=== PATIENT | female | born 2000 | race American Indian/Alaskan Native ===

== ENCOUNTER 2022-03-23 15:38 | Emergency (ER) | payer OTHER ==
[2022-03-23] MEDS ORDERED: Amoxicillin/Potassium Clav 875 MG TAB ONE (17:31)
[2022-03-23] MEDS ORDERED: Rabies Vaccine Human 2.5 UNITS VIAL IM ONE (17:45)
[2022-03-23] MEDS ORDERED: Boostrix 0.5 ML (Tdap) VIAL (>/=7 yrs of age) ONE (17:50)
== END 2022-03-23 18:33 | disposition home or self-care (01) ==
LOC: CSHERS 15:38
DX: S61.552A Open bite of left wrist, initial encounter (principal); Z23 Encounter for immunization; W54.0XXA Bitten by dog, initial encounter
CPT/HCPCS: 90375; 90471; 90675; 90715; 96372

== ENCOUNTER → 2022-03-26 | Day surgery (SDC) | payer OTHER ==
[~2022-03-26] MED LIST: Rabies Vaccine Human 2.5 UNITS VIAL IM ONE
== END ==
LOC: CSHER/OP 16:24
PROVIDERS: ATTEND General Practice
DX: Z23 Encounter for immunization (principal)
CPT/HCPCS: 90471; 90675